=== PATIENT | male | born 2005 | race Caucasian/White ===

== ENCOUNTER 2023-06-29 01:42 | Emergency (ER) | payer SELFPAY ==
--- NOTE | 2023-06-29 02:24 | ER ---
Nurse's Notes [facility] Name: Chris Peguero Age: 17 yrs Sex: Male : 2005 Arrival Date: 06/29/2023 Time: 01:42 Bed 5 Private MD: Diagnosis: Acute tonsillitis, unspecified Presentation: 06/29 02:19 Chief complaint: Patient states: This morning my throat started hurting. It hurts vc1 really bad when I swallow. I can't eat. Coronavirus screen: Vaccine status: Patient reports being unvaccinated. Client denies travel out of the [place] in the last 14 days. fatigue, fever, muscle pain, sore throat, Client presents with at least one sign or symptom that may indicate coronavirus-19. Standard/surgical mask placed on the client. Provider contacted for isolation considerations. Ebola Screen: Patient negative for fever greater than or equal to 101.5 degrees Fahrenheit, and additional compatible Ebola Virus Disease symptoms Patient denies exposure to infectious person. Patient denies travel to an Ebola-affected area in the 21 days before illness onset. No symptoms or risks identified at this time. Initial Sepsis Screen: Does the patient meet any 2 criteria? No. Patient's initial sepsis screen is negative. Does the patient have a suspected source of infection? No. Patient's initial sepsis screen is negative. Risk Assessment: Do you want to hurt yourself or someone else? Patient reports no desire to harm self or others. Onset of symptoms was June 29, 2023. 02:19 Method Of Arrival: Ambulatory vc1 02:19 Acuity: LENA 4 vc1 Triage Assessment: 02:22 General: Appears in no apparent distress. uncomfortable, ill, Behavior is calm, vc1 cooperative, appropriate for age. Pain: Complains of pain in left aspect of posterior pharynx and right aspect of posterior pharynx Pain does not radiate. Pain currently is 10 out of 10 on a pain scale. Quality of pain is described as sharp, Pain began suddenly, Aggravated by eating, drinking, swallowing. EENT: Throat is reddened has patchy exudate on right. Neuro: Level of Consciousness is awake, alert, obeys commands, Oriented to person, place, time, situation, Appropriate for age. Cardiovascular: No deficits noted. Respiratory: Airway is patent Respiratory effort is even, unlabored, Respiratory pattern is regular, symmetrical. GI: No deficits noted. No signs and/or symptoms were reported involving the gastrointestinal system. : No deficits noted. No signs and/or symptoms were reported regarding the genitourinary system. Derm: No deficits noted. No signs and/or symptoms reported regarding the dermatologic system. Musculoskeletal: Reports pain in body aches. Historical: - Allergies: 02:21 No Known Allergies; vc1 - Home Meds: 02:21 None [Active]; vc1 - PMHx: 02:21 None; vc1 - PSHx: 02:21 None; vc1 - Immunization history:: Client reports having NOT received the Covid vaccine. Flu vaccine is not up to date. - Social history:: Smoking status: Patient reports the use of cigarette tobacco products, 1 cigarette/day, Reported history of juuling and/or vaping. - Family history:: not pertinent. Screenin:20 [facility] ED Fall Risk Assessment (Adult) History of falling in the last 3 months, jj7 including since admission No falls in past 3 months (0 pts) Confusion or Disorientation No (0 pts) Intoxicated or Sedated No (0 pts) Impaired Gait No (0 pts) Mobility Assist Device Used No (0 pt) Altered Elimination No (0 pt) Score/Fall Risk Level 0 - 2 = Low Risk Oriented to surroundings, Maintained a safe environment. Abuse screen: Denies threats or abuse. Nutritional screening: No deficits noted. Tuberculosis screening: No symptoms or risk factors identified. Assessment: 02:20 General: Appears in no apparent distress. comfortable, Behavior is calm, cooperative, jj7 appropriate for age. Respiratory: No deficits noted. Airway is patent Trachea midline Respiratory effort is even, unlabored, Respiratory pattern is regular, symmetrical, Breath sounds are clear bilaterally. 03:04 Reassessment: Patient appears in no apparent distress at this time. Patient and/or jw7 family updated on plan of care and expected duration. Pain level reassessed. Patient is alert, oriented x 3, equal unlabored respirations, skin warm/dry/pink. Patient states feeling better. Vital Signs: 02:19 BP 137 / 94; Pulse 86; Resp 18; Temp 98.6; Pulse Ox 99% ; Weight 58.97 kg; Height 6 ft. vc1 0 in. ; Pain 10/10; 03:05 BP 128 / 75; Pulse 84; Resp 16 S; Pulse Ox 99% on R/A; jw7 02:19 Body Mass Index 17.63 (58.97 kg, 182.88 cm) - Percentile 0.6 % vc1 02:19 Pain Scale: Adult vc1 ED Course: 01:47 Patient arrived in ED. jj6 01:50 Key[facility] Flowers F[facility]-C [facility] snw 01:50 Gonzalez Reyes MD is Attending Physician. snw 02:20 Patient has correct armband on for positive identification. Bed in low position. Call jj7 light in reach. 02:20 No provider procedures requiring assistance completed. Patient did not have IV access jj7 during this emergency room visit. 02:21 Triage completed. vc1 02:22 Arm band placed on right wrist. vc1 02:30 Scarlett Mancilla RN is Primary Nurse. jj7 02:42 Urine Drug Screen Sent. jj7 03:06 Provided Education on: discharge instructions. jw7 Administered Medications: 02:42 Drug: Rocephin (cefTRIAXone) IM 1 grams IM once Route: IM; Site: right gluteus; jj7 03:19 Follow up: Response: No adverse reaction jw7 02:42 Drug: Ibuprofen PO 800 mg PO once Route: PO; jj7 03:19 Follow up: Response: No adverse reaction; Marked relief of symptoms jw7 02:42 Drug: Acetaminophen PO 1000 mg PO once Route: PO; jj7 03:19 Follow up: Response: No adverse reaction; Marked relief of symptoms jw7 02:42 Drug: Ondansetron PO 4 mg PO once Route: PO; jj7 03:19 Follow up: Response: No adverse reaction; Marked relief of symptoms jw7 Medication: 02:20 VIS not applicable for this client. jj7 Outcome: 02:23 Discharge ordered by . spDiana 03:06 Discharged to home ambulatory, jw7 03:06 Condition: stable 03:06 Discharge instructions given to patient, Instructed on discharge instructions, follow up and referral plans. medication usage, Demonstrated understanding of instructions, follow-up care, medications, Prescriptions given X 3, 03:19 Patient left the ED. jw7 Signatures: Keya Flowers FNP-C FNP-Khadijah Marc jj6 Regla Grubbs RN RN vc1 Raiza Mccabe RN RN jw7 Scarlett Mancilla RN RN jj7 Gonzalez Reyes MD MD sp4
--- NOTE | 2023-06-29 02:24 | EDPHYS ---
Physician Documentation [facility] Name: Chris Peguero Age: 17 yrs Sex: Male : 2005 Arrival Date: 06/29/2023 Time: 01:42 Bed 5 Private MD: ED Physician Gonzalez Reyes HPI: 06/29 02:20 This 17 yrs old Male presents to ER via Unassigned with complaints of Cough, sp4 Sore Throat, Congestion, Fever. 02:20 17-year-old male presents with complaint of acute onset of sore throat starting sp4 yesterday morning. 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 Patient reported acute febrile illness as well but reported fever was subjective. Denies any past medical history, denied any other medical allergies, denied being on any medication. Historical: - Allergies: 02:21 No Known Allergies; vc1 - Home Meds: 02:21 None [Active]; vc1 - PMHx: 02:21 None; vc1 - PSHx: 02:21 None; vc1 - Immunization history:: Client reports having NOT received the Covid vaccine. Flu vaccine is not up to date. - Social history:: Smoking status: Patient reports the use of cigarette tobacco products, 1 cigarette/day, Reported history of juuling and/or vaping. - Family history:: not pertinent. ROS: 02:20 Constitutional: Positive for fever and chills ENT: Positive sore throat, positive pain sp4 on swallowing 02:20 All other systems are negative, Exam: 02:20 Constitutional: This is a well developed, well nourished patient who is awake, alert, sp4 and in no acute distress. Head/Face: Normocephalic, atraumatic. Eyes: Pupils equal round and reactive to light, extra-ocular motions intact. Lids and lashes normal. Conjunctiva and sclera are not injected. Cornea within normal limits. Periorbital areas with no swelling, redness, or edema. ENT: Nares patent. No nasal discharge, no septal abnormalities noted. Tympanic membranes are normal and external auditory canals are clear. Oropharynx positive bilateral pharyngeal erythema with right tonsillar exudate Neck: Trachea midline, no thyromegaly or masses palpated, and no cervical lymphadenopathy. Supple, full range of motion without nuchal rigidity, or vertebral point tenderness. Chest/axilla: Normal chest wall appearance and motion. Nontender with no deformity. No lesions are appreciated. Cardiovascular: Regular rate and rhythm with a normal S1 and S2. No gallops, murmurs, or rubs. Normal PMI, no JVD. No pulse deficits. Respiratory: Lungs have equal breath sounds bilaterally, clear to auscultation and percussion. No rales, rhonchi or wheezes noted. No increased work of breathing, no retractions or nasal flaring. Abdomen/GI: Soft, non-tender, with normal bowel sounds. No distension or tympany. No guarding or rebound. No evidence of tenderness throughout. Back: No spinal tenderness. No costovertebral tenderness. Skin: Warm, dry with normal turgor. Normal color with no rashes, no lesions, and no evidence of cellulitis. MS/ Extremity: Pulses equal, no cyanosis. Neurovascular intact. Full, normal range of motion. Neuro: Awake and alert, GCS 15, oriented to person, place, time, and situation. Cranial nerves II-XII grossly intact. Motor strength 5/5 in all extremities. Sensory grossly intact. Psych: Awake, alert, with orientation to person, place and time. Behavior, mood, and affect are within normal limits Vital Signs: 02:19 BP 137 / 94; Pulse 86; Resp 18; Temp 98.6; Pulse Ox 99% ; Weight 58.97 kg; Height 6 ft. vc1 0 in. ; Pain 10/10; 03:05 BP 128 / 75; Pulse 84; Resp 16 S; Pulse Ox 99% on R/A; jw7 02:19 Body Mass Index 17.63 (58.97 kg, 182.88 cm) - Percentile 0.6 % vc1 02:19 Pain Scale: Adult vc1 MDM: 01:50 Patient medically screened. snw 02:20 Differential Diagnosis: Bronchitis Influenza Upper Respiratory Infection Sinusitis sp4 Pharyngitis Otitis Media. Data reviewed: vital signs, nurses notes. ED course: Patient has signs and symptoms of streptococcal tonsillitis. Will prescribe ibuprofen 600 mg every 6 hours as needed for sore throat. Tylenol as needed for sore throat also will provide prescription of Zithromax for 5 days. . 06/29 02:27 Order name: Urine Drug Screen sp4 Administered Medications: 02:42 Drug: Rocephin (cefTRIAXone) IM 1 grams IM once Route: IM; Site: right gluteus; jj7 03:19 Follow up: Response: No adverse reaction jw7 02:42 Drug: Ibuprofen PO 800 mg PO once Route: PO; jj7 03:19 Follow up: Response: No adverse reaction; Marked relief of symptoms jw7 02:42 Drug: Acetaminophen PO 1000 mg PO once Route: PO; jj7 03:19 Follow up: Response: No adverse reaction; Marked relief of symptoms jw7 02:42 Drug: Ondansetron PO 4 mg PO once Route: PO; jj7 03:19 Follow up: Response: No adverse reaction; Marked relief of symptoms jw7 Disposition Summary: 06/29/23 02:23 Discharge Ordered Notes: Location: Home sp4 Problem: new sp4 Symptoms: have improved sp4 Condition: Stable sp4 Diagnosis - Acute tonsillitis, unspecified sp4 Followup: sp4 - With: Private Physician - When: 7 - 10 days - Reason: Recheck today's complaints Discharge Instructions: - Discharge Summary Sheet sp4 - Tonsillitis sp4 Forms: - Patient Portal Instructions sp4 Prescriptions: - acetaminophen 500 mg Oral capsule - take 2 capsule ORAL route every 6 hours PRN pain or fever; 60 capsule; Refills: sp4 0, Product Selection Permitted - Ibuprofen 800 mg Oral tablet - take 1 tablet ORAL route every 6 hours As needed PRN pain and fever, may take sp4 Together with Acetaminophen; 30 tablet; Refills: 0, Product Selection Permitted - Zithromax Z-Frantz 250 mg Oral Tablet - take 1 tablet ORAL route as directed for 5 days Day 1 - take two (2) tablets sp4 one time. Day 2, 3, 4 , 5 take one (1) tablet once daily.; 6 tablet; Refills: 0, Product Selection Permitted Signatures: Dispatcher [employer] Keya Miguel FNP-C FNP-Regla Barillas RN RN vc1 Scarlett Mancilla RN RN jj7 Gonzalez Reyes MD MD sp4 Raiza Mccabe RN jw7
[2023-06-29] MEDS ORDERED: ACETAMINOPHEN 500 MG TAB ONE (02:47)
[2023-06-29] MEDS ORDERED: LIDOCAINE 1% MPF 5 ML VIAL ONE (02:47)
[2023-06-29] MEDS ORDERED: CEFTRIAXONE 1000 MG/VIAL ONE (02:47)
[2023-06-29] MEDS ORDERED: IBUPROFEN 400 MG TAB ONE (02:47)
[2023-06-29] MEDS ORDERED: ONDANSETRON 4 MG (ODT) TAB ONE (02:48)
[2023-06-29 03:24] VITALS: TEMP 98.6; O2SAT 99
[2023-06-29 03:26] VITALS: BP 128/75
[2023-06-29 03:37] LABS: Barbiturates NEGATIVE (NEGATIVE); Benzodiazepines NEGATIVE (NEGATIVE); Cocaine NEGATIVE (NEGATIVE); METHAMPHETAM NEGATIVE (NEGATIVE); Methadone NEGATIVE (NEGATIVE); Opiates NEGATIVE (NEGATIVE); Phencyclidine NEGATIVE (NEGATIVE); THC Cannibis NEGATIVE (NEGATIVE)
== END 2023-06-29 03:19 | disposition home or self-care (01) ==
LOC: ER 01:42
DX: J03.90 Acute tonsillitis, unspecified (principal)
CPT/HCPCS: 80307; 96372; 99284; J0696; J2001; Q0162